=== PATIENT | female | born 1995 | race Caucasian/White ===

== ENCOUNTER 2019-04-11 01:22 | Inpatient (IN) ==
[2019-04-11 02:14] LABS: Urine Bilirubin Negative (NEGATIVE); Urine Blood Negative /ul (NEGATIVE); Urine Ketone 5 mg/dL (NEGATIVE); Urine Nitrite Negative (NEGATIVE); Urine Protein Negative (NEGATIVE); Urine Specific Gravity 1.025 SP.GR. (1.005-1.010); Urine Urobilinogen Normal (NORMAL); Urine pH 5.5 pH (5.0-7.0)
[2019-04-11] MEDS: RINGER'S SOLUTION,LACTATED 1,000 ML IV PRN ×4 (02:15→21:33)
[2019-04-11 02:25] LABS: Urine Appearance Clear (CLEAR); Urine Color Yellow
[2019-04-11 02:26] LABS: Urine Bacteria 2+; Urine RBC None Seen /hpf (0-5)
[2019-04-11] MEDS ORDERED: OXYTOCIN/DEXTROSE 5%-WATER 30 UNITS/500 ML BAG IV ONE (02:35)
--- NOTE | 2019-04-11 09:47 | HP ---
Chief Complaint - Chief Complaint Date of Service: 04/11/19 Time of Service: 09:39 Chief Complaint: contractions, low back pain History of Present Illness: 23 yo at 39 weeks that presents to L&D complaining of low back pain and contractions unrelieved with conservative measures. This uncomplicated Rh positive Rubella immune GBS negative Medical History (Updated 03/27/19 @ 19:14 by Caro Aponte MD) Anemia Onset Date: 01/25/19 w/ Body piercing Onset Date: Unknown Tattoos Onset Date: Unknown Kidney infection Onset Date: ~2015 Nocturnal enuresis Onset Date: Unknown as a child Palpitations Onset Date: ~2016 evaluated by [facility]-negative, stress related Surgical History: Surgical History (Updated 03/27/19 @ 19:14 by Caro Aponte MD) History of shoulder surgery Onset Date: ~01/2014 Family History: Family History (Updated 11/17/18 @ 13:34 by Bertram Marino RN) Mother Alive and well Father Alive and well Grandfather Cancer Esophageal Grandmother Diabetes Social History: (Last Reviewed 04/11/19 @ 09:42 by Eduardo Snider DO) Social History: adopted: No mcfp: No Marital status: Single household members: family number of children: 0 current occupational status: employed current occupation: [employer] current occupational exposures/hazards: No Highest education level completed: some college, no degree Sexually Active: Yes Service: No Tobacco: Smoking Status: Former smoker Alcohol: alcohol intake: current alcohol intake frequency: a few times a month details: no alcohol since + UPT Substance Use: substance use type: does not use Dietary Habits: caffeine: No Exercise: frequency: other [place]/Roman [employer]: agree to transfusion: Yes Review Of Systems (GEN) - Review of Systems Generalized/Overall Review: Present: No Symptoms Reported EENTM: Present: No Symptoms Reported Respiratory: Present: No Symptoms Reported Cardiac: Present: Other Abdominal: Present: Other - contractions Genitourinary: Present: No Symptoms Reported Musculoskeletal: Present: Back Pain Neurological: Present: No Symptoms Reported Skin: Present: No Symptoms Reported Endocrine: Present: No Symptoms Reported Allergies/Adverse Reactions: Allergies Allergy/AdvReac Type Severity Reaction Status Date / Time No Known Allergies Allergy Verified 04/07/19 10:35 Home Medications: HOME MEDICATIONS vitamins no.121-iron 28 mg-folic acid 800 mcg tablet 1 tab PO DAILY tab 10/30/18 [Last Taken 04/10/19] pyridoxine (vitamin B6) 100 mg tablet 100 mg PO DAILY 12/15/18 [Last Taken 04/10/19] ferrous sulfate 325 mg (65 mg iron) tablet 325 mg PO DAILY 02/11/19 [Last Taken 04/10/19] Exam - Exam Vital Signs: Vital Signs - Last Taken Temp 36.6 C 04/11/19 01:48 Pulse 108 H 04/11/19 01:48 Resp 16 04/11/19 01:48 BP 141/87 H 04/11/19 01:48 Pulse Ox 99 04/11/19 01:48 Constitutional: Present: Alert, Oriented x3, Cooperative, Mild distress ENT Exam: Present: hearing grossly normal Breasts: Present: Exam deferred Respiratory: Present: lungs clear, no respiratory distress Cardiovascular/Chest: Present: regular rate, rhythm Abdomen: Present: soft, nontender, no rebound tenderness, other - gravid /Rectal: Present: Other - 2/50/-3 Extremity: Present: no calf tenderness, lower extremity edema Skin Exam: Present: normal color, warm/dry, no cyanosis Neurologic: Present: alert, normal mood/affect, oriented x 3 Appearance: Present: appropriate appearance, appropriate insight Eye contact: Present: cooperative, good eye contact Thoughts: Present: normal thought pattern, normal mood /affect Diagnostic Studies: Abnormal Lab Results 04/11/19 Range/Units 01:49 Ur Leukocyte Esterase 500 H (NEGATIVE) /ul Urine WBC 10-25 H (0-5) /hpf Ur Epithelial Cells 10-25 H (0-5) /hpf Urine Bacteria 2+ H (NONE) Laboratory Results Yellow 04/11/19 01:49 Clear (CLEAR) 04/11/19 01:49 5.5 pH (5.0-7.0) 04/11/19 01:49 Ur Specific [place] 1.025 SP.GR. (1.005-1.010) 04/11/19 01:49 Negative mg/dL (NEGATIVE) 04/11/19 01:49 Negative mg/dL (NEGATIVE) 04/11/19 01:49 5 mg/dL (NEGATIVE) 04/11/19 01:49 Negative /ul (NEGATIVE) 04/11/19 01:49 Negative (NEGATIVE) 04/11/19 01:49 Negative mg/dl (NEGATIVE) 04/11/19 01:49 Normal EU/dl (NORMAL) 04/11/19 01:49 Ur Leukocyte Esterase 500 /ul (NEGATIVE) H 04/11/19 01:49 None seen /hpf (0-5) 04/11/19 01:49 10-25 /hpf (0-5) H 04/11/19 01:49 Ur Epithelial Cells 10-25 /hpf (0-5) H 04/11/19 01:49 2+ (NONE) H 04/11/19 01:49 No culture indicated 04/11/19 01:49 Assessment/Plan - Assessment/Plan (1) Labor established Assessment: Early latent phase of labor. Will admit for augmentation of labor due to patient living >40 min from hospital and having increased pain. Epidural PRN. Problem: Acute
[2019-04-11] MEDS ORDERED: BUPIVACAINE HCL/0.9 % NACL/PF 250 ML EP PRN (13:06)
[2019-04-11] MEDS ORDERED: NALOXONE HCL 1 MG/1 ML SYRG IV PRN (13:06)
[2019-04-11] MEDS ORDERED: ONDANSETRON HCL/PF 2 MG/ML VIAL IV PRN (13:06)
[2019-04-11] MEDS ORDERED: fentaNYL CITRATE/PF 50 MCG/ML AMPUL IT SCH (13:15)
[2019-04-11] MEDS ORDERED: LIDOCAINE HCL/EPINEPHRINE 20 ML VIAL ONE (13:35)
--- NOTE | 2019-04-11 14:09 | ANES ---
Anesthesia Pre Procedure Eval Vitals/Labs: Last Vital Signs Temp 36.6 C 04/11/19 01:48 Pulse 108 H 04/11/19 01:48 Resp 16 04/11/19 01:48 BP 141/87 H 04/11/19 01:48 Pulse Ox 99 04/11/19 01:48 HOME MEDICATIONS vitamins no.121-iron 28 mg-folic acid 800 mcg tablet 1 tab PO DAILY tab 10/30/18 [Last Taken 04/10/19] pyridoxine (vitamin B6) 100 mg tablet 100 mg PO DAILY 12/15/18 [Last Taken 04/10/19] ferrous sulfate 325 mg (65 mg iron) tablet 325 mg PO DAILY 02/11/19 [Last Taken 04/10/19] Allergies/Adverse Reactions: Allergies Allergy/AdvReac Type Severity Reaction Status Date / Time No Known Allergies Allergy Verified 04/07/19 10:35 - Planned Procedure Medication List Reviewed:: Yes Allergies Verified: Yes Medical History (Updated 04/11/19 @ 09:47 by Eduardo Snider DO) Anemia Onset Date: 01/25/19 w/ Body piercing Onset Date: Unknown Tattoos Onset Date: Unknown Kidney infection Onset Date: ~2015 Nocturnal enuresis Onset Date: Unknown as a child Palpitations Onset Date: ~2016 evaluated by [facility]-negative, stress related Surgical History (Updated 03/27/19 @ 19:14 by Caro Aponte MD) History of shoulder surgery Onset Date: ~01/2014 Family History (Updated 11/17/18 @ 13:34 by Bertram Marino RN) Mother Alive and well Father Alive and well Grandfather Cancer Esophageal Grandmother Diabetes - Family Anesthesia History Family History:: no untoward family reactions to anesthesia - Airway/Neck/Teeth Within Normal Limits:: Yes Teeth Condition: intact Neck Exam: full range of motion Mallampatti Score: 2 Thyromental (T-M) distance: > 6 cm Mandibulo Hyoid distance: > 3 cm - Respiratory Respiratory Physical: lungs clear Smoking Status: Never smoker Sleep Apnea currently treated: No Sleep Apnea by current assessment: No - Cardiovascular Tolerate Activity: Good Heart Sounds: S1 & S2, Regular - Anesthesia Assessment and Plan ASA Class: PS, II, E Anesthesia Type Plan: Epidural Planned difficult intubation/equipment available: No
--- NOTE | 2019-04-11 14:10 | ANES ---
Post Anesthesia Assessment - Vital Signs Vitals: Last Vital Signs Temp 36.6 C 04/11/19 01:48 Pulse 108 H 04/11/19 01:48 Resp 16 04/11/19 01:48 BP 141/87 H 04/11/19 01:48 Pulse Ox 99 04/11/19 01:48 Airway Patency: Normal - Mental Status Level Of Consciousness: Awake - Pain Level Pain Score: 1 - N/V Assessment Nausea/Vomiting Presence: None Dehydration:: No
--- NOTE | 2019-04-11 14:10 | ANES ---
Post Anesthesia Discharge - Transfer of Care Transfer of Care handoff given to nurse: Yes - Anesthesia Post Op Note Anesthesia Post Op Note: Care transferred to OB RN
--- NOTE | 2019-04-11 14:13 | ANES ---
Anesthesia Procedure Note Procedure Note: ANESTHESIA PROCEDURE NOTE Date of Procedure: 04/11/2019 Time of procedure: Krystin. Performed by: Shantanu Mendez CRNA Photographer Motion Picture: None. Preprocedure diagnosis: Active labor. Post procedure diagnosis: Same. Procedure: Insertion of labor epidural. Indications: The patient is a 23-year-old, prima para female in active labor requesting labor epidural for pain management. Findings: See below. Details of the procedure: The patient was placed in a sitting position. Back was prepped with DuraPrep. Patient was then draped in a sterile fashion. Lidocaine 1% was infiltrated to the skin and subcutaneous tissues at the level of the L3 4 interspace. The epidural space was identified using a 18-gauge Tuohy needle with [id number] technique. 20 mcg fentanyl was given intrathecally using a 27 ga. spinal needle. Epidural catheter was inserted without difficulty. Negative test dose was elicited using 3 mL of 2% preservative-free lidocaine plus epinephrine 1 200,000. The epidural catheter was then taped and secured in place. EBL: Minimal. Fluids: N/A. Specimen: N/A. Post procedure condition: The patient tolerated the procedure well. No complications were noted. Thank you for this consultation. Barba CRNA
--- NOTE | 2019-04-11 14:41 | PN ---
Progess Note - Interim Date: 04/11/19 Time: 14:39 Narrative: 04/11/19 14:39 Patient comfortable with epidural Vital signs stable. Pitocin at 2 mu/min. FHT: 150 baseline, reassuring contractions q 1-2 min Cervix: 4-5/50/-2, AROM-clear Impression: Intrauterine at 39 weeks augmentation of labor Plan: Pitocin off. Titrate up if needed.
--- NOTE | 2019-04-11 19:11 | PN ---
Progess Note - Interim Date: 04/11/19 Time: 19:08 Narrative: 04/11/19 19:09 Patient comfortable with epidural Vital signs stable. Pitocin at 4 mu/min. FHT: 150 baseline, reassuring contractions not picking up well, appear to be in the 3 to 4-minute range Cervix: 6/80/-2, IUPC placed due to inability to pick remover contractions well Impression: Intrauterine at 39 weeks augmentation of labor Plan: Titrate Pitocin to keep contractions adequate.
[2019-04-12] MEDS ORDERED: GLYCERIN/WITCH HAZEL LEAF 40 APPL BOX TP PRN (02:10)
[2019-04-12] MEDS ORDERED: BENZOCAINE/MENTHOL 81 SPRAY CAN TP PRN (02:10)
[2019-04-12] MEDS ORDERED: BISACODYL 10 MG SUPP.RECT RC PRN (02:10)
[2019-04-12] MEDS ORDERED: SENNOSIDES 8.6 MG TABLET PO PRN (02:10)
[2019-04-12] MEDS ORDERED: OXYTOCIN/DEXTROSE 5%-WATER 30 UNITS/500 ML BAG IV ONE (02:10)
[2019-04-12] MEDS ORDERED: HYDROCORTISONE 30 APPL TUBE TP PRN (02:10)
--- NOTE | 2019-04-12 02:17 | OR ---
Operative Report - Dictated Report Narrative: Spontaneous vaginal delivery of viable 39 1/7 week female at 0124 on 04/12/2019 with Apgars 8 and 9, weighing 3733 g in ALEXA position. Cord clamping delayed approximately 1 minute Placenta delivered complete, intact, with three vessel cord Estimated blood loss: 100 mL Anesthesia: Epidural Lacerations: 3 cm second-degree vaginal laceration repaired with 3-0 Vicryl Rapide History for MU History for Definition: * The number of deliveries resulting in a live the patient experienced prior to current hospitalization * The previous delivery of live twins or any live multiple gestation is considered one live event. *If primagravida or nulliparous is documented select zero for the number of previous live births. Live Events: Live Events: 0
[2019-04-12] MEDS: IBUPROFEN 800 MG TABLET PO PRN ×2 (04:21→17:06)
[2019-04-12] MEDS: FERROUS SULFATE 325 MG TABLET PO SCH (08:52)
[2019-04-12] MEDS: DOCUSATE SODIUM 100 MG CAPSULE PO SCH ×2 (08:52→20:36)
[2019-04-12] MEDS: PYRIDOXINE HCL (VITAMIN B6) 25 MG TABLET PO SCH (08:52)
[2019-04-12] MEDS: PRENATAL VITS96/IRON FUM/FOLIC 1 TAB TABLET PO SCH (08:52)
[2019-04-12] MEDS ORDERED: PYRIDOXINE HCL 100 MG PO SCH (09:00)
[2019-04-12] MEDS: oxyCODONE HCL/ACETAMINOPHEN 1 TAB TABLET PO PRN (20:36)
[2019-04-13] MEDS: FERROUS SULFATE 325 MG TABLET PO SCH ×2 (06:54→09:31)
[2019-04-13] MEDS: PRENATAL VITS96/IRON FUM/FOLIC 1 TAB TABLET PO SCH ×2 (06:54→09:31)
[2019-04-13] MEDS: IBUPROFEN 800 MG TABLET PO PRN ×2 (06:54→15:48)
[2019-04-13] MEDS: oxyCODONE HCL/ACETAMINOPHEN 1 TAB TABLET PO PRN ×2 (06:54→15:49)
[2019-04-13] MEDS: DOCUSATE SODIUM 100 MG CAPSULE PO SCH ×3 (06:54→20:08)
[2019-04-13] MEDS: PYRIDOXINE HCL (VITAMIN B6) 25 MG TABLET PO SCH ×2 (07:06→09:32)
--- NOTE | 2019-04-13 11:59 | PN ---
Subjective - Date and Time Seen Date: 04/13/19 Time: 11:58 Objective - Vitals Vitals: Last Vital Signs Temp 37.0 C 04/13/19 07:01 Pulse 88 04/13/19 07:01 Resp 18 04/13/19 07:01 BP 107/57 04/13/19 07:01 Pulse Ox 99 04/13/19 07:01 Patient denies complaints. Breast-feeding Lochia wnl abdomen - soft, nontender Uterus -firm, at umbilicus - 1 no calf tenderness Impression: day #1 - s/p spontaneous vaginal delivery. Plan: Continue routine care Cauti Physician Documentation - Urinary Catheter Management Urethral (Ibarra) Date of Insertion: 04/11/19 Time of Insertion: 14:30 Assessment/Plan - Problems/Diagnosis (1) Labor established Problem: Acute
[2019-04-14] MEDS: IBUPROFEN 800 MG TABLET PO PRN (06:47)
[2019-04-14 06:56] VITALS: BP 125/59
[2019-04-14] MEDS: DOCUSATE SODIUM 100 MG CAPSULE PO SCH (09:24)
[2019-04-14] MEDS: PRENATAL VITS96/IRON FUM/FOLIC 1 TAB TABLET PO SCH (09:24)
[2019-04-14] MEDS: FERROUS SULFATE 325 MG TABLET PO SCH (09:24)
[2019-04-14] MEDS: PYRIDOXINE HCL (VITAMIN B6) 25 MG TABLET PO SCH (09:25)
== END 2019-04-14 12:00 | disposition home or self-care (01) | DRG 807 ==
LOC: OBCLINIC 01:22 → OB 02:36
PROVIDERS: ADMIT Obstetrics & Gynecology; ATTEND Obstetrics & Gynecology
CPT/HCPCS: 59025; 81001; 87086